=== PATIENT | female | born 1975 | race Two or more races ===

== ENCOUNTER → 2024-07-27 | Outpatient (CLI) | payer MEDICAID, SELFPAY ==
--- NOTE | 2024-07-27 09:00 | XR_ITS ---
Examination: Diagnostic digital mammography, unilateral, right Computer aided detection 3-D breast Tomosynthesis, unilateral Date and time of exam: July 27, 2024 0842 hours INDICATIONS: Mammogram August 28, 2023 17 mm focal asymmetry outer right breast Technique: Nonmagnified MLO, CC views of the right breast have been obtained, reconstructed from 3-D Tomosynthesis images. R2 computer aided detection program utilized for evaluation of suspicious masses and/or abnormal calcifications. 3-D Tomosynthesis images obtained. Findings: The breast is heterogeneously dense, which may obscure small masses Stable focal asymmetry outer right breast CC view posterior depth Impression: BI-RADS category 0: Incomplete: Need additional imaging evaluation Recommend repeat right breast sonography follow-up
== END | disposition home or self-care (01) ==
LOC: CDIM 08:36
PROVIDERS: Referring Provider Physician Assistant; Visit Provider Physician Assistant
DX: R92.8 Other abnormal and inconclusive findings on diagnostic imaging of breast (principal)
CPT/HCPCS: 77061; 77065; G0279

== ENCOUNTER 2024-12-17 20:27 | Emergency (ER) | payer MEDICAID, SELFPAY ==
--- NOTE | 2024-12-17 21:16 | XR_ITS ---
Examination: PA lateral chest 2 views Technique: Upright PA lateral chest 2 views Date and time: December 17, 2024 2157 hrs., Comparison 32,024 Indications: Upper left chest pain beginning 3 weeks ago. Findings: Normal heart size. Lungs are clear. The osseous structures are intact. Impression: No active disease.
[2024-12-17 21:17] VITALS: BP 165/92; PULSE 68; RESP 18; TEMP 37; O2SAT 99
--- NOTE | 2024-12-17 21:17 | PD.EDBACK ---
ED Back Injury Pain RME/HPI General Chief Complaint: Back Pain/Injury Stated Complaint: LEFT LOWER BACK PAIN Time Seen by Provider: 12/17/24 21:16 Arrival date/time: 12/17/24 20:27 RME / HPI RME / HPI Narrative: 49-year-old female patient came in for evaluation regarding upper back pain. Onset of symptoms for the last 3 weeks's upper back pain, described as dull ache, severity moderate. Patient told me that she cannot sleep during the night due to pain. Patient denies any cough denies any shortness of breath denies any fall denies any trauma denies any complaints. No medication was taken prior to arrival. Related Data Home Medications ?Medication ?Instructions ?Recorded ?Confirmed naproxen 250 mg tablet 250 mg PO BIDWM #0 tabs 12/15/16 Previous Rx's ?Medication ?Instructions ?Recorded tramadol 50 mg tablet (Ultram) 1 - 2 tab PO Q6HR PRN severe pain 12/15/16 #20 tabs albuterol sulfate 2.5 mg/3 mL 2.5 mg (3 mL) inhalation Q4H #75 mL 06/25/19 (0.083 %) solution for nebulization prednisone 50 mg tablet 50 mg PO QDAY #4 tabs 06/25/19 ibuprofen 800 mg tablet 800 mg PO TID PRN pain #30 tabs 02/03/21 naproxen 500 mg tablet (Naprosyn) 500 mg PO BID PRN pain #30 tabs 04/04/21 hydrocodone 5 mg-acetaminophen 325 1 tab PO BID PRN pain #10 tabs 01/23/22 mg tablet baclofen 10 mg tablet 10 mg PO BID PRN muscle spasm #20 12/17/24 tabs ibuprofen 800 mg tablet 800 mg PO Q8H PRN pain #30 tabs 12/17/24 Allergies Allergy/AdvReac Type Severity Reaction Status Date / Time No Known Allergies Allergy Verified 01/23/22 10:56 Review of Systems Review of Systems Narrative Review of Systems: Review of system reviewed and within normal limits except mentioned in HPI ED Exam Narrative Physical exam: VITAL SIGNS: Reviewed. GENERAL APPEARANCE: Alert and interactive, follows commands, no acute distress, HEAD AND FACE: Non-traumatic. ENT: PERRL, pink conjunctivitis, eyelid no trauma, Mucous membrane moist. NECK: Supple, nontender, no nuchal rigidity. CHEST: Upper back chest tenderness, no crepitus, no paradoxical movement, no retractions. LUNGS: Clear, well ventilated, symmetric, no rales, no wheezing, no ronchi, no stridor, good breath sounds bilaterally. HEART: Regular rate, regular rhythm, no murmur, no gallops. ABDOMEN: Soft, positive bowel sounds, nondistended, no guarding, nontender, no rebound, no masses, RECTAL: Deferred. GENITAL: Deferred. NEUROLOGICAL: Gross motor function intact sensory function intact, Appropriate for age. MUSCULOSKELETAL: low back nontender, full range of motion. EXTREMITIES: Nontender, full range of motion. SKIN: Color pink, dry, no rash, no lacerations, no abrasions, no contusions. LYMPHATICS: Deferred. Course Quality Measures none Orders Category Date Time Status XR chest 2V Stat Exams 12/17/24 21:16 Completed Ketorolac Inj [Toradol Inj] Med 12/17/24 21:16 Discontinued 30 mg IM X1 ONE methocarbamoL [Robaxin] Med 12/17/24 21:16 Discontinued 500 mg PO X1 ONE Vital Signs Vital signs: Vital Signs Temperature 98.6 F 12/17/24 21:17 Pulse Rate 68 12/17/24 21:17 Respiratory Rate 18 12/17/24 21:17 Blood Pressure 165/92 H 12/17/24 21:17 Pulse Oximetry (%) 99 12/17/24 21:17 Oxygen Delivery Method Room Air 12/17/24 21:17 Back Pain / Injury MDM Narrative MDM Narrative:: 49-year-old female patient came in for evaluation regarding upper back pain. Onset of symptoms for the last 3 weeks's upper back pain, described as dull ache, severity moderate. Patient told me that she cannot sleep during the night due to pain. Patient denies any cough denies any shortness of breath denies any fall denies any trauma denies any complaints. No medication was taken prior to arrival. I personally reviewed and interpreted the x-ray of this patient. There is no acute abnormalities found, no infiltrates no pneumothorax no hemothorax normal chest x-ray. Review of other structures was without significant abnormal findings also. I additionally reviewed the radiologist report and agree with the interpretation. Patient received Toradol and Robaxin with significant improvement of pain. Patient appears nontoxic and hemodynamically stable .Decision to discharge the patient. The patient/family was given an opportunity to ask questions and understood their discharge instructions. Discharge instructions specifically included follow up provider and time frame, current and/or new medications and possible side effects, indications for sooner follow up or return to the emergency department, and the expected course of current diagnosis. Patient reports feeling better as well and giving evidence of significant clinical improvement, I believe patient is now a candidate for discharge. Patient data External records reviewed:: None Clinical information provided by:: patient Social determinants that could affect healthcare access:: none Patient has the following chronic illnesses:: None How is presenting disease/condition affected by chronic disease/condition?: no chronic disease Evaluation data The following diagnostics were reviewed and interpreted by me:: radiology exam(s) Lab and/or radiology exams considered but not ordered:: None Interpretation Summary: None surgeons MDM Medications / Prescriptions Medications or Prescriptions considered but not ordered:: None Medication administrations:: Medication Administration History Discontinued Medications Ketorolac Tromethamine (Ketorolac Inj 60 Mg/2 Ml Vial) 30 mg IM X1 ONE Stop: 12/17/24 21:17 Last Admin: 12/17/24 21:35 Dose: 30 mg Documented By: SHEKHAR Methocarbamol (Methocarbamol 500 Mg Tablet) 500 mg PO X1 ONE Stop: 12/17/24 21:17 Toradol, Robaxin Consultations Consultation(s) initiated? (list below): No Diagnosis Differential diagnosis back pain/injury: thoracic back pain and other (Upper back pain) Most likely diagnosis given after review of the tests above:: Upper back pain, muscular Admission Indicated Admission indicated?: not indicated Admission Request Was there a request for admission?: No Disposition Plan Disposition Plan: Discharge Discharge Attestation Discharge Attestation: The patient was given an opportunity to ask questions and understood the discharge instructions. Discharge instructions specifically effects, indications for sooner follow up or return to the emergency department, and the expected course of current diagnosis. Patient condition: Stable Discharge Plan Plan Patient Disposition: HOME (Self Care) Discharge Disposition comment: Stable Prescriptions/Referrals Prescriptions/Med Rec: New ibuprofen 800 mg tablet 800 mg PO Q8H PRN (Reason: pain) Qty: 30 0RF baclofen 10 mg tablet 10 mg PO BID PRN (Reason: muscle spasm) Qty: 20 0RF No Action naproxen 250 MG tablet 250 mg PO BIDWM Qty: 0 tramadol [Ultram] 50 MG tablet 1 - 2 tab PO Q6HR PRN (Reason: severe pain) Qty: 20 0RF Rx Instructions: FOR PAIN, NOT TO EXCEED 8 TABS IN 24 HRS albuterol sulfate 2.5 mg /3 mL (0.083 %) solution for nebulization 2.5 mg IH Q4H Qty: 75 0RF prednisone 50 mg tablet 50 mg PO QDAY Qty: 4 0RF ibuprofen 800 mg tablet 800 mg PO TID PRN (Reason: pain) Qty: 30 0RF naproxen [Naprosyn] 500 mg tablet 500 mg PO BID PRN (Reason: pain) Qty: 30 0RF hydrocodone-acetaminophen 5-325 mg tablet 1 tab PO BID MDD 10 PRN (Reason: pain) Qty: 10 0RF Referrals: No Primary/Family,Physician [Primary Care Provider] - In 1 week Problem List Clinical Impression: Acute upper back pain Patient/Caregiver Discharge Instructions Discharge Activity: activity as tolerated Education Materials: Back Exercises: Back Press Additional Instructions: Thank you for the opportunity for serving you today. You are stable for discharged . You are advised to: Follow-up with your PCP in 1 to 2 days Return to ED for worsening of symptoms Increase oral fluids Take medication as prescribed Print Language: Djiboutian Stand Alone Forms: Domenica Award Info., Patient Portal Info Letter CHARLES/KIEL Supervising Physician CHARLES/KIEL Supervising Physician: MD Deloris
[2024-12-17] MEDS: KETOROLAC INJ 60 MG/2 ML VIAL 30 MG IM (21:35)
[2024-12-17 23:45] VITALS: BP 158/88; PULSE 71; RESP 18; TEMP 36.6; O2SAT 98
== END 2024-12-18 00:08 | disposition home or self-care (01) ==
PROVIDERS: Emergency Provider Emergency Medicine
DX: M54.6 Pain in thoracic spine (principal)
CPT/HCPCS: 71046; 96372; 99283; J1885

== ENCOUNTER → 2025-01-01 | Outpatient (CLI) | payer MEDICAID, SELFPAY ==
--- NOTE | 2025-01-01 10:40 | XR_ITS ---
Examination: Thoracic spine 3 views Technique one AP lateral coned lateral upper dorsal spine 3 views Date and time: January 01, 2025 1057 hours INDICATIONS: Upper back pain beginning one month ago, comparison February 03, 2021 FINDINGS: Upper thoracic dextroscoliosis 6 degrees Lower thoracic levoscoliosis 10 degrees Prominent osteopenia Mild prominence left ventricle Mild diffuse thoracic disc narrowing Mild thoracic spondylosis No thoracic fracture Incidental note moderate degenerative disc disease C6-C7 IMPRESSION: Thoracic scoliosis as above Mild diffuse thoracic degenerative disc disease
== END | disposition home or self-care (01) ==
LOC: CDIM 10:14
PROVIDERS: PCP Nurse Practitioner Primary Care; Referring Provider Physician Assistant; Visit Provider Physician Assistant
DX: M41.84 Other forms of scoliosis, thoracic region (principal); M51.34 Other intervertebral disc degeneration, thoracic region
CPT/HCPCS: 72070

== ENCOUNTER → 2025-02-08 | Outpatient (CLI) | payer MEDICAID, SELFPAY ==
--- NOTE | 2025-02-08 10:00 | XR_ITS ---
Examination: Breast ultrasound, unilateral, right complete Date and time of exam: February 08, 2025, 1032 hours INDICATIONS: Mammogram July 27, 2024 focal asymmetry outer right breast Technique: Real-time james scale ultrasonographic imaging performed right breast including all 4 quadrants as well as nipple retroareolar and axillary region. Findings: 12:00 cyst 7 x 7 mm No solid nodules IMPRESSION: BI-RADS Category 2: Benign findings
--- NOTE | 2025-02-08 10:30 | XR_ITS ---
Examination: Screening digital mammography, bilateral Computer aided detection 3-D breast Tomosynthesis, bilateral Date and time of exam: February 08, 2025, 1051 hours, compared to mammograms dating to June 23, 2021 Indication: Screening Technique: Nonmagnified MLO, CC views of the breasts to been obtained, reconstructed from 3-D Tomosynthesis images. R2 computer aided detection program utilized for evaluation of suspicious masses and/or abnormal calcifications. 3-D Tomosynthesis images obtained. Findings: The breasts are heterogeneously dense, which may obscure small masses Benign calcifications. No interval suspicious masses Impression: BI-RADS category II: Benign Findings. Recommend 1 year follow-up mammogram.
== END | disposition home or self-care (01) ==
PROVIDERS: PCP Physician Assistant; Referring Provider Physician Assistant; Visit Provider Physician Assistant
DX: Z12.31 Encounter for screening mammogram for malignant neoplasm of breast (principal); R92.323 Mammographic fibroglandular density, bilateral breasts; R92.1 Mammographic calcification found on diagnostic imaging of breast
CPT/HCPCS: 76641; 77063; 77067

== ENCOUNTER 2025-03-12 23:05 | Emergency (ER) | payer MEDICAID, SELFPAY ==
[2025-03-12 23:38] VITALS: BP 160/85; PULSE 80; RESP 18; TEMP 36.8; O2SAT 99
--- NOTE | 2025-03-13 | PD.EDALLER ---
ED Allergic Reaction RME/HPI General Chief complaint: Skin/Abscess/Foreign Body Stated complaint: RASH, ITCHING TO WHOLE BODY Time Seen by Provider: 03/12/25 23:56 Arrival date/time: 03/12/25 23:05 49F with no significant PMH presents to ED with several weeks of generalized mildly itchy rash that started after patient started terbinafine. Patient stopped it 2 days after patient started having the reaction. Rash started in back and spread to rest of body. Limitations: no limitations Related Data Home Medications ?Medication ?Instructions ?Recorded ?Confirmed naproxen 250 mg tablet 250 mg PO BIDWM #0 tabs 12/15/16 Previous Rx's ?Medication ?Instructions ?Recorded tramadol 50 mg tablet (Ultram) 1 - 2 tab PO Q6HR PRN severe pain 12/15/16 #20 tabs albuterol sulfate 2.5 mg/3 mL 2.5 mg (3 mL) inhalation Q4H #75 mL 06/25/19 (0.083 %) solution for nebulization prednisone 50 mg tablet 50 mg PO QDAY #4 tabs 06/25/19 ibuprofen 800 mg tablet 800 mg PO TID PRN pain #30 tabs 02/03/21 naproxen 500 mg tablet (Naprosyn) 500 mg PO BID PRN pain #30 tabs 04/04/21 hydrocodone 5 mg-acetaminophen 325 1 tab PO BID PRN pain #10 tabs 01/23/22 mg tablet baclofen 10 mg tablet 10 mg PO BID PRN muscle spasm #20 12/17/24 tabs ibuprofen 800 mg tablet 800 mg PO Q8H PRN pain #30 tabs 12/17/24 prednisone 20 mg tablet 20 mg PO BID 4 days #8 tabs 03/12/25 Allergies Allergy/AdvReac Type Severity Reaction Status Date / Time No Known Allergies Allergy Verified 01/23/22 10:56 Review of Systems Review of Systems Systems Reviewed: All systems reviewed, normal except as documented Integumentary/Breasts Skin/Breast: Reports as per HPI, Reports pruritus and Reports rash Past Medical History Social History SMOKING STATUS: Never smoker ED Exam General Limitations: Present no limitations General appearance: Present alert and in no apparent distress Head Head exam: Present atraumatic Neck Neck exam: Present normal inspection, full ROM and trachea midline Chest Chest inspection: Present normal inspection and symmetric chest wall rise Neurological Exam Neurological exam: Present alert and oriented X3 Psychiatric Psychiatric exam: Present normal affect and normal mood Skin Skin exam: Present warm, dry, intact, normal color and rash Course Quality Measures none Orders Category Date Time Status Dexamethasone Inj [Decadron Inj] Med 03/12/25 23:57 Discontinued 10 mg PO X1 ONE Vital Signs Vital signs: Vital Signs Temperature 98.2 F 03/12/25 23:38 Pulse Rate 80 03/12/25 23:38 Respiratory Rate 18 03/12/25 23:38 Blood Pressure 160/85 H 03/12/25 23:38 Pulse Oximetry (%) 99 03/12/25 23:38 Oxygen Delivery Method Room Air 03/12/25 23:38 O2 at 99% on RA and WNLs Allergic Reaction MDM Narrative MDM Narrative:: 49F with no significant PMH presents to ED with several weeks of generalized mildly itchy rash that started after patient started terbinafine. Patient stopped it 2 days after patient started having the reaction. Rash started in back and spread to rest of body. Physical exam reveals mild but generalized non-urticarial rash. Rita tree appearance on back. Normal WOB. Speech normal. Patient is afebrile, calm, and alert. Likely pityriasis rosea, whether idiopathic, viral, or drug-related. Meds and food counselor given. Patient data External records reviewed:: [facility] previous records Clinical information provided by:: patient Social determinants that could affect healthcare access:: none Patient has the following chronic illnesses:: none How is presenting disease/condition affected by chronic disease/condition?: no chronic disease Evaluation data The following diagnostics were reviewed and interpreted by me:: other (specify) (none) Lab and/or radiology exams considered but not ordered:: not ordered Interpretation Summary: n/a Medications / Prescriptions Medications or Prescriptions considered but not ordered:: ordered Medication administrations:: Medication Administration History Discontinued Medications Dexamethasone Sodium Phosphate (Dexamethasone Sod Phos Inj 10 Mg/Ml Vial) 10 mg PO X1 ONE Stop: 03/12/25 23:58 above Consultations Consultation(s) initiated? (list below): No Diagnosis Differential Diagnosis allergic reaction: anaphylaxis, allergic reaction, angioedema, contact dermatitis, adverse reaction to drug, viral enanthem, urticaria and other (pityriasis rosea) Most likely diagnosis given after review of the tests above:: pityriasis rosea Admission Indicated Admission indicated?: not indicated Admission Request Was there a request for admission?: No Disposition Plan Disposition Plan: Discharge Discharge Attestation Discharge Attestation: The patient and all family members were given an opportunity to ask questions and understood the discharge instructions. Discharge instructions specifically effects, indications for sooner follow up or return to the emergency department, and the expected course of current diagnosis. Patient condition: Stable Discharge Plan Plan Patient Disposition: HOME (Self Care) Discharge Disposition comment: Stable Prescriptions/Referrals Prescriptions/Med Rec: New prednisone 20 mg tablet 20 mg PO BID 4 Days Qty: 8 0RF No Action naproxen 250 MG tablet 250 mg PO BIDWM Qty: 0 tramadol [Ultram] 50 MG tablet 1 - 2 tab PO Q6HR PRN (Reason: severe pain) Qty: 20 0RF Rx Instructions: FOR PAIN, NOT TO EXCEED 8 TABS IN 24 HRS albuterol sulfate 2.5 mg /3 mL (0.083 %) solution for nebulization 2.5 mg IH Q4H Qty: 75 0RF prednisone 50 mg tablet 50 mg PO QDAY Qty: 4 0RF ibuprofen 800 mg tablet 800 mg PO TID PRN (Reason: pain) Qty: 30 0RF naproxen [Naprosyn] 500 mg tablet 500 mg PO BID PRN (Reason: pain) Qty: 30 0RF hydrocodone-acetaminophen 5-325 mg tablet 1 tab PO BID MDD 10 PRN (Reason: pain) Qty: 10 0RF ibuprofen 800 mg tablet 800 mg PO Q8H PRN (Reason: pain) Qty: 30 0RF baclofen 10 mg tablet 10 mg PO BID PRN (Reason: muscle spasm) Qty: 20 0RF Problem List Clinical Impression: Pityriasis rosea Patient/Caregiver Discharge Instructions Education Materials: ED Pityriasis Rosea Additional Instructions: Please follow-up with PCP within 24-48 hours and return immediately if symptoms worsen. Take OTC antihistamine as needed until symptoms resolve. Finish entire steroid course. See PCP for alternative to terbinafine. Print Language: Welsh Stand Alone Forms: Patient Portal Info Letter PA/PATIENT SUPPORT SPECIALIST Supervising Physician CHARLES/PATIENT SUPPORT SPECIALIST Supervising Physician: Dr. Puentes
[2025-03-13] MEDS: DEXAMETHASONE SOD PHOS INJ 10 MG/ML VIAL PO (00:02)
== END 2025-03-13 00:07 | disposition home or self-care (01) ==
PROVIDERS: Emergency Provider Emergency Medicine; PCP Physician Assistant
DX: L42 Pityriasis rosea (principal)
CPT/HCPCS: 99281; J1100